=== PATIENT | female | born 1980 | race Caucasian/White ===

== ENCOUNTER 2016-06-23 09:18 | Emergency (ER) | payer OTHER ==
[~2016-06-23] VITALS: Ht 167.6 cm; Wt 79.1 kg
[2016-06-23] MEDS ORDERED: GABA-531 PO (09:42)
[2016-06-23] MEDS ORDERED: ALPR0.5T8 PO (09:42)
[2016-06-23 10:20] VITALS: BP 124/61
== END 2016-06-23 10:29 | disposition home or self-care (01) ==
LOC: EMS 09:25
DX: F31.9 Bipolar disorder, unspecified (principal); F41.9 Anxiety disorder, unspecified; F17.210 Nicotine dependence, cigarettes, uncomplicated; Z76.0 Encounter for issue of repeat prescription; Z88.6 Allergy status to analgesic agent; Z88.8 Allergy status to other drugs, medicaments and biological substances
CPT/HCPCS: 99281

== ENCOUNTER 2016-07-27 12:20 | Inpatient (IN) | payer MEDICAID ==
[~2016-07-27] VITALS: Ht 167.6 cm; Wt 78.5 kg
[~2016-07-27 12:20] MED LIST: ALPR0.5T8 PO; GABA-531 PO
[2016-07-27 13:51] VITALS: BP 141/92
[2016-07-27] MEDS ORDERED: OLANZapine 5 MG RAPDIS TABLET PO PRN (14:00)
[2016-07-27] MEDS ORDERED: INFLUENZA VIRUS VACCINE QVS 2016-17 (3YR+)/PF 60 MCG/0.5 ML SYRINGE IM ONE (15:00)
[2016-07-27 16:03] VITALS: BP 103/63
[2016-07-27] MEDS: FLUoxetine HCL 20 MG CAPSULE PO SCH (17:08)
[2016-07-27] MEDS: GABAPENTIN 300 MG CAPSULE PO SCH ×2 (17:08→21:23)
[2016-07-27] MEDS: HALOPERIDOL 5 MG TABLET PO PRN (17:16)
[2016-07-27] MEDS ORDERED: OLANZapine 5 MG TABLET PO SCH (21:00)
[2016-07-27] MEDS: ZOLPIDEM TARTRATE 10 MG TABLET PO PRN (21:22)
[2016-07-28] MEDS: GABAPENTIN 300 MG CAPSULE PO SCH ×3 (08:45→16:58)
[2016-07-28] MEDS: FLUoxetine HCL 20 MG CAPSULE PO SCH (08:45)
[2016-07-28 16:08] VITALS: BP 108/74
[2016-07-28] MEDS: HALOPERIDOL 5 MG TABLET PO PRN (16:58)
[2016-07-28] MEDS: ZOLPIDEM TARTRATE 10 MG TABLET PO PRN (20:51)
[2016-07-29 08:28] VITALS: BP 104/67
[2016-07-29] MEDS: FLUoxetine HCL 20 MG CAPSULE PO SCH (08:30)
[2016-07-29] MEDS: GABAPENTIN 300 MG CAPSULE PO SCH ×3 (08:30→16:25)
[2016-07-29] MEDS: OLANZapine 5 MG TABLET PO SCH ×2 (08:31→16:25)
[2016-07-29] MEDS ORDERED: OLAN5TAB2 PO (09:35)
[2016-07-29] MEDS ORDERED: FLUO-191 PO (09:36)
[2016-07-29 16:02] VITALS: BP 115/80
[2016-07-29] MEDS: HALOPERIDOL 5 MG TABLET PO PRN (17:42)
[2016-07-29] MEDS: ZOLPIDEM TARTRATE 10 MG TABLET PO PRN (20:53)
[2016-07-30 01:30] VITALS: BP 111/71
[2016-07-30] MEDS: GABAPENTIN 300 MG CAPSULE PO SCH ×3 (08:13→16:01)
[2016-07-30] MEDS: OLANZapine 5 MG TABLET PO SCH ×2 (08:13→16:01)
[2016-07-30] MEDS: FLUoxetine HCL 20 MG CAPSULE PO SCH (08:13)
[2016-07-30 08:55] VITALS: BP 138/72
[2016-07-30] MEDS: HALOPERIDOL 5 MG TABLET PO PRN (16:02)
[2016-07-30 16:07] VITALS: BP 120/77
[2016-07-31 08:47] VITALS: BP 122/71
[2016-07-31] MEDS: GABAPENTIN 300 MG CAPSULE PO SCH ×3 (08:50→16:15)
[2016-07-31] MEDS: OLANZapine 5 MG TABLET PO SCH ×2 (08:50→16:15)
[2016-07-31] MEDS: FLUoxetine HCL 20 MG CAPSULE PO SCH (08:50)
[2016-07-31] MEDS: HALOPERIDOL 5 MG TABLET PO PRN (09:31)
[2016-07-31 16:12] VITALS: BP 114/73
[2016-07-31] MEDS ORDERED: OLANZapine 10 MG TABLET PO SCH (21:00)
[2016-08-01 05:49] VITALS: BP 106/74
[2016-08-01 08:11] VITALS: BP 121/76
[2016-08-01] MEDS: GABAPENTIN 300 MG CAPSULE PO SCH ×3 (08:24→16:10)
[2016-08-01] MEDS: OLANZapine 5 MG TABLET PO SCH ×2 (08:24→16:11)
[2016-08-01] MEDS ORDERED: FLUoxetine HCL 20 MG CAPSULE PO SCH (09:00)
[2016-08-01 16:02] VITALS: BP 128/80
[2016-08-01] MEDS ORDERED: OLAN7.5T2 PO (16:18)
== END 2016-08-01 16:50 | disposition home or self-care (01) | DRG 751 ==
LOC: B2S 14:09
PROVIDERS: ADMIT Psychiatry & Neurology Psychiatry; ATTEND Psychiatry & Neurology Psychiatry
DX: F33.3 Major depressive disorder, recurrent, severe with psychotic symptoms (principal); F15.20 Other stimulant dependence, uncomplicated; R45.851 Suicidal ideations; F60.3 Borderline personality disorder; F12.90 Cannabis use, unspecified, uncomplicated; B19.20 Unspecified viral hepatitis C without hepatic coma; F17.200 Nicotine dependence, unspecified, uncomplicated; G62.9 Polyneuropathy, unspecified; Z81.8 Family history of other mental and behavioral disorders; Z79.899 Other long term (current) drug therapy; Z59.0 Homelessness
CPT/HCPCS: 90471

== ENCOUNTER 2016-08-13 00:28 | Inpatient (IN) | payer MEDICAID ==
[~2016-08-13] VITALS: Ht 167.6 cm; Wt 83.5 kg
[~2016-08-13 00:28] MED LIST changes: -ALPR0.5T8 PO; +FLUO-191 PO; +OLAN5TAB2 PO; +OLAN7.5T2 PO
[2016-08-13] MEDS ORDERED: OLANZapine 5 MG RAPDIS TABLET PO PRN ×2 (01:30→02:45)
[2016-08-13] MEDS ORDERED: ZOLPIDEM TARTRATE 10 MG TABLET PO PRN (01:30)
[2016-08-13] MEDS ORDERED: LORazepam 2 MG TABLET PO PRN (01:30)
[2016-08-13 03:18] VITALS: BP 121/82
[2016-08-13] MEDS: LORazepam 2 MG TABLET PO PRN ×3 (03:38→17:33)
[2016-08-13] MEDS: FLUoxetine HCL 20 MG CAPSULE PO SCH (09:25)
[2016-08-13] MEDS: OLANZapine 5 MG TABLET PO SCH (09:26)
[2016-08-13 16:08] VITALS: BP 130/94
[2016-08-13] MEDS: OLANZapine 7.5 MG TABLET PO SCH (20:24)
[2016-08-13] MEDS: ZOLPIDEM TARTRATE 10 MG TABLET PO PRN (21:46)
[2016-08-14 05:38] VITALS: BP 123/89
[2016-08-14] MEDS: LORazepam 2 MG TABLET PO PRN ×3 (05:38→16:56)
[2016-08-14] MEDS: OLANZapine 5 MG TABLET PO SCH (08:27)
[2016-08-14] MEDS: FLUoxetine HCL 20 MG CAPSULE PO SCH (08:28)
[2016-08-14 08:30] VITALS: BP 124/77
[2016-08-14 16:08] VITALS: BP 134/79
[2016-08-14] MEDS: ZOLPIDEM TARTRATE 10 MG TABLET PO PRN (19:54)
[2016-08-14] MEDS: OLANZapine 7.5 MG TABLET PO SCH (20:25)
[2016-08-15] MEDS: LORazepam 2 MG TABLET PO PRN ×4 (01:13→16:51)
[2016-08-15 01:14] VITALS: BP 106/75
[2016-08-15 08:29] VITALS: BP 130/85
[2016-08-15] MEDS: OLANZapine 5 MG TABLET PO SCH (08:31)
[2016-08-15] MEDS: FLUoxetine HCL 20 MG CAPSULE PO SCH (08:31)
[2016-08-15 16:00] VITALS: BP 122/88
[2016-08-15] MEDS: GABAPENTIN 300 MG CAPSULE PO SCH (16:47)
[2016-08-15] MEDS: OLANZapine 7.5 MG TABLET PO SCH (20:26)
[2016-08-15] MEDS: ZOLPIDEM TARTRATE 10 MG TABLET PO PRN (21:10)
[2016-08-16 07:00] VITALS: BP 122/86
[2016-08-16] MEDS: LORazepam 2 MG TABLET PO PRN ×4 (07:18→20:47)
[2016-08-16 08:27] VITALS: BP 103/61
[2016-08-16] MEDS: FLUoxetine HCL 20 MG CAPSULE PO SCH (08:34)
[2016-08-16] MEDS: GABAPENTIN 300 MG CAPSULE PO SCH ×3 (08:34→16:31)
[2016-08-16] MEDS: OLANZapine 5 MG TABLET PO SCH (08:34)
[2016-08-16 16:00] VITALS: BP 117/79
[2016-08-16] MEDS: OLANZapine 7.5 MG TABLET PO SCH (20:35)
[2016-08-16] MEDS: ZOLPIDEM TARTRATE 10 MG TABLET PO PRN (21:27)
[2016-08-16] MEDS ORDERED: BENZOCAINE 10% 7 GM GEL TP PRN (22:00)
[2016-08-16] MEDS: ACETAMINOPHEN 325 MG TABLET PO PRN (22:30)
[2016-08-17 06:48] VITALS: BP 110/72
[2016-08-17] MEDS: GABAPENTIN 300 MG CAPSULE PO SCH ×2 (08:13→12:15)
[2016-08-17] MEDS: ACETAMINOPHEN 325 MG TABLET PO PRN (08:13)
[2016-08-17] MEDS: FLUoxetine HCL 20 MG CAPSULE PO SCH (08:13)
[2016-08-17] MEDS: OLANZapine 5 MG TABLET PO SCH (08:13)
[2016-08-17 08:23] VITALS: BP 128/77
[2016-08-17] MEDS: LORazepam 2 MG TABLET PO PRN ×2 (08:25→12:34)
[2016-08-17 08:49] LABS: BASOPHILS % (AUTO) 0.6 % (0.0-2.0); EOSINOPHILS % (AUTO) 3.4 % (1.0-6.0); HEMATOCRIT 45.6 % (36-46); HEMOGLOBIN 14.7 g/dL (12.0-16.0); LYMPHOCYTES # (AUTO) 2.4 K/uL (1.0-4.8); LYMPHOCYTES % (AUTO) 22.7 % (22.0-44.0); MEAN CORPUSCULAR HEMOGLOBIN 28.9 pg (26.0-34.0); MEAN CORPUSCULAR HGB CONC 32.3 G/dL (31.0-37.0); MEAN CORPUSCULAR VOLUME 90 fL (80-100); MONOCYTES # (AUTO) 0.8 K/uL (0.1-1.0); MONOCYTES % (AUTO) 7.5 % (2.0-9.0); NEUTROPHILS # (AUTO) 6.9 K/uL (1.8-7.7); NEUTROPHILS % (AUTO) 65.8 % (40.0-70.0); PLATELET COUNT (AUTO) 264 K/uL (150-450); RED BLOOD CELL COUNT(AUTO) 5.09 MIL/uL (4.00-5.20); RED CELL DISTRIBUTION WIDTH 14.1 % (11.5-14.5); WHITE BLOOD COUNT (AUTO) 10.5 K/uL (4.5-11.0)
[2016-08-17 09:45] LABS: HEMOGLOBIN A1C 4.9 % (4.5-6.2)
[2016-08-17 10:40] LABS: ALANINE AMINOTRANSFERASE 74 U/L (12-78); ALBUMIN 3.3 g/dL (3.4-5.0); ANION GAP 9 mmol/L (8-16); ASPARTATE AMINOTRANSFERASE 42 U/L (15-37); BILIRUBIN,TOTAL 0.3 mg/dL (0.1-1.0); CALCIUM, TOTAL 8.9 mg/dL (8.8-10.5); CARBON DIOXIDE 26 mmol/L (22-29); CHLORIDE 103 mmol/L (98-107); CHOL/HDL RATIO 3.6 (3.9-5.7); GLOMERULAR FILTR. RATE CALC > 60 mL/min (>60); POTASSIUM 4.2 mmol/L (3.5-5.1); SODIUM SERUM 138 mmol/L (136-145); THYROID STIMULATING HORMONE 2.89 uIU/mL (0.36-3.74); TOTAL PROTEIN, SERUM 7.2 g/dL (6.4-8.2); UREA NITROGEN, BLOOD 25 mg/dL (7-18)
== END 2016-08-17 13:44 | disposition home or self-care (01) | DRG 753 ==
LOC: B3A 02:00 → BV PSY EVL 02:22 → B3A 02:25 → UNDOADMIN 02:25 → EDSTATUS 02:31
PROVIDERS: ATTEND Psychiatry & Neurology Psychiatry
DX: F31.4 Bipolar disorder, current episode depressed, severe, without psychotic features (principal); R45.851 Suicidal ideations; F15.20 Other stimulant dependence, uncomplicated; B19.20 Unspecified viral hepatitis C without hepatic coma; D72.829 Elevated white blood cell count, unspecified; F41.9 Anxiety disorder, unspecified; F17.290 Nicotine dependence, other tobacco product, uncomplicated; F29 Unspecified psychosis not due to a substance or known physiological condition; Z79.899 Other long term (current) drug therapy; Z72.89 Other problems related to lifestyle; Z71.51 Drug abuse counseling and surveillance of drug abuser; Z88.6 Allergy status to analgesic agent; Z88.8 Allergy status to other drugs, medicaments and biological substances; Z28.21 Immunization not carried out because of patient refusal; Z28.09 Immunization not carried out because of other contraindication
CPT/HCPCS: 83036; 84439; 84443; 87081

== ENCOUNTER 2017-03-14 16:42 | Inpatient (IN) | payer MEDICAID, OTHER ==
[~2017-03-14] VITALS: Ht 167.6 cm; Wt 83.5 kg
[~2017-03-14 16:42] MED LIST changes: -OLAN7.5T2 PO
[2017-03-14] MEDS ORDERED: LORazepam 2 MG/ML VIAL ONE (16:58)
[2017-03-14] MEDS ORDERED: HALOPERIDOL LACTATE 5 MG/ML VIAL ONE (16:58)
[2017-03-14] MEDS ORDERED: DiphenhydrAMINE HCL 50 MG/ML VIAL ONE (16:58)
[2017-03-14] MEDS ORDERED: HALOPERIDOL LACTATE 5 MG/ML VIAL IM ONE (17:15)
[2017-03-14] MEDS ORDERED: DiphenhydrAMINE HCL 50 MG/ML VIAL IM ONE (17:15)
[2017-03-14] MEDS ORDERED: LORazepam 2 MG/ML VIAL IM ONE (17:15)
[2017-03-14] MEDS ORDERED: ZOLPIDEM TARTRATE 10 MG TABLET PO PRN (18:00)
[2017-03-14 18:02] LABS: BASOPHILS % (AUTO) 0.3 % (0.0-2.0); EOSINOPHILS % (AUTO) 0.5 % (1.0-6.0); HEMATOCRIT 37.9 % (36-46); HEMOGLOBIN 13.1 g/dL (12.0-16.0); LYMPHOCYTES # (AUTO) 2.4 K/uL (1.0-4.8); LYMPHOCYTES % (AUTO) 20.5 % (22.0-44.0); MEAN CORPUSCULAR HEMOGLOBIN 30.2 pg (26.0-34.0); MEAN CORPUSCULAR HGB CONC 34.5 G/dL (31.0-37.0); MEAN CORPUSCULAR VOLUME 88 fL (80-100); MONOCYTES # (AUTO) 0.8 K/uL (0.1-1.0); MONOCYTES % (AUTO) 6.8 % (2.0-9.0); NEUTROPHILS # (AUTO) 8.4 K/uL (1.8-7.7); NEUTROPHILS % (AUTO) 71.9 % (40.0-70.0); PLATELET COUNT (AUTO) 239 K/uL (150-450); RED BLOOD CELL COUNT(AUTO) 4.32 MIL/uL (4.00-5.20); RED CELL DISTRIBUTION WIDTH 13.1 % (11.5-14.5)
[2017-03-14 18:17] LABS: ALANINE AMINOTRANSFERASE 18 U/L (12-78); ALBUMIN 3.7 g/dL (3.4-5.0); ALKALINE PHOSPHATASE 90 U/L (46-116); ANION GAP 14 mmol/L (8-16); ASPARTATE AMINOTRANSFERASE 23 U/L (15-37); BILIRUBIN,TOTAL 0.9 mg/dL (0.1-1.0); CALCIUM, TOTAL 9.1 mg/dL (8.8-10.5); CARBON DIOXIDE 23 mmol/L (22-29); CHLORIDE 105 mmol/L (98-107); CREATININE 0.92 mg/dL (0.60-1.30); GLOMERULAR FILTR. RATE CALC > 60 mL/min (>60); GLUCOSE,RANDOM 99 mg/dL (70-110); SODIUM SERUM 142 mmol/L (136-145); TOTAL PROTEIN, SERUM 7.6 g/dL (6.4-8.2); UREA NITROGEN, BLOOD 10 mg/dL (7-18)
[2017-03-14] MEDS ORDERED: POTASSIUM CHLORIDE 20 MEQ ER TABLET PO ONE ×2 (18:45→21:30)
[2017-03-14] MEDS: GABAPENTIN 300 MG CAPSULE PO SCH (20:57)
[2017-03-14] MEDS: OLANZapine 7.5 MG TABLET PO SCH (20:58)
[2017-03-14 21:20] VITALS: BP 111/67
[2017-03-14] MEDS ORDERED: INFLUENZA VIRUS VACCINE QVS 2017-18 (3YR+)/PF 60 MCG/0.5 ML SYRINGE IM ONE (22:30)
[2017-03-14] MEDS ORDERED: PNEUMOCOCCAL VACCINE POLYVALENT 0.5 ML VIAL [PPSV23] IM ONE (22:30)
[2017-03-15 07:07] VITALS: BP 109/76
[2017-03-15] MEDS: GABAPENTIN 300 MG CAPSULE PO SCH (08:04)
[2017-03-15 08:20] VITALS: BP 109/55
[2017-03-15] MEDS ORDERED: FLUoxetine HCL 20 MG CAPSULE PO SCH (09:00)
[2017-03-15 09:05] LABS: HEMOGLOBIN A1C 5.4 % (4.5-6.2)
[2017-03-15 09:41] LABS: CHOL/HDL RATIO 2.5 (3.9-5.7); FREE T4 (FREE THYROXINE) 1.17 ng/dL (0.76-1.46); POTASSIUM 3.7 mmol/L (3.5-5.1); THYROID STIMULATING HORMONE 1.79 uIU/mL (0.36-3.74)
[2017-03-15] MEDS ORDERED: GABAPENTIN 300 MG CAPSULE PO SCH (13:00)
[2017-03-15] MEDS ORDERED: GABAPENTIN 400 MG CAPSULE ONE (14:11)
[2017-03-15] MEDS: HALOPERIDOL 5 MG TABLET PO PRN (14:54)
[2017-03-15] MEDS: LORazepam 2 MG TABLET PO PRN (14:54)
[2017-03-15] MEDS: GABAPENTIN 400 MG CAPSULE PO SCH (16:04)
[2017-03-15] MEDS: OLANZapine 7.5 MG TABLET PO SCH (20:09)
[2017-03-16 08:10] VITALS: BP 100/68
[2017-03-16] MEDS: GABAPENTIN 400 MG CAPSULE PO SCH ×3 (08:25→16:23)
[2017-03-16] MEDS: LORazepam 2 MG TABLET PO PRN ×2 (12:58→20:34)
[2017-03-16 16:00] VITALS: BP 113/69
[2017-03-16] MEDS: OLANZapine 7.5 MG TABLET PO SCH (20:34)
[2017-03-17 07:01] VITALS: BP 108/71
[2017-03-17] MEDS: LORazepam 2 MG TABLET PO PRN ×2 (08:00→16:13)
[2017-03-17] MEDS: GABAPENTIN 400 MG CAPSULE PO SCH ×3 (08:00→16:11)
[2017-03-17 08:33] VITALS: BP 110/76
[2017-03-17 16:00] VITALS: BP 123/88
[2017-03-17] MEDS: HALOPERIDOL 5 MG TABLET PO PRN (17:07)
[2017-03-17] MEDS: OLANZapine 7.5 MG TABLET PO SCH (20:08)
[2017-03-18 06:40] VITALS: BP 110/72
[2017-03-18] MEDS: HALOPERIDOL 5 MG TABLET PO PRN (08:24)
[2017-03-18] MEDS: LORazepam 2 MG TABLET PO PRN ×3 (08:24→20:08)
[2017-03-18] MEDS: GABAPENTIN 400 MG CAPSULE PO SCH ×3 (08:24→16:06)
[2017-03-18 09:00] VITALS: BP 100/76
[2017-03-18 16:28] VITALS: BP 106/71
[2017-03-18] MEDS: OLANZapine 7.5 MG TABLET PO SCH (20:08)
[2017-03-19] MEDS: LORazepam 2 MG TABLET PO PRN ×2 (06:47→11:23)
[2017-03-19 07:16] VITALS: BP 110/72
[2017-03-19 08:42] VITALS: BP 107/73
[2017-03-19] MEDS: GABAPENTIN 400 MG CAPSULE PO SCH ×2 (08:48→13:10)
[2017-03-19 11:23] VITALS: BP 110/70
== END 2017-03-19 15:00 | disposition home or self-care (01) | DRG 750 ==
LOC: EMS 16:44 → B3A 18:48
PROVIDERS: ADMIT Psychiatry & Neurology Psychiatry; ATTEND Psychiatry & Neurology Psychiatry
DX: F25.9 Schizoaffective disorder, unspecified (principal); G62.9 Polyneuropathy, unspecified; F32.9 Major depressive disorder, single episode, unspecified; E87.6 Hypokalemia; D72.829 Elevated white blood cell count, unspecified; F17.200 Nicotine dependence, unspecified, uncomplicated; K21.9 Gastro-esophageal reflux disease without esophagitis; F41.9 Anxiety disorder, unspecified; G89.29 Other chronic pain; F17.210 Nicotine dependence, cigarettes, uncomplicated; M54.9 Dorsalgia, unspecified; Z88.6 Allergy status to analgesic agent; Z88.8 Allergy status to other drugs, medicaments and biological substances; Z79.899 Other long term (current) drug therapy; Z98.891 History of uterine scar from previous surgery
CPT/HCPCS: 83036; 84132; 84439; 84443; 96372; 99285; G0480; J1200; J1630; J2060